=== PATIENT | female | born 1995 | race African-American/Black ===

== ENCOUNTER 2016-10-14 00:20 | Emergency (ER) | payer OTHER ==
[~2016-10-14] VITALS: Ht 172.7 cm; Wt 88.5 kg
[~2016-10-14 00:20] MED LIST: ACYC400T PO; IBUP-232 PO; OXYC1TAB63 PO; SENN1TAB PO
[2016-10-14 00:23] VITALS: BP 137/93; PULSE 75; RESP 20; TEMP 98.5; O2SAT 100
[2016-10-14] MEDS: SODIUM CHLOR 0.9% 1000 ML INJ 1,000 ML IV SCH ×2 (01:40→02:14)
[2016-10-14 01:44] VITALS: BP 148/82; PULSE 66; RESP 18; O2SAT 100
[2016-10-14] MEDS ORDERED: ONDANSETRON HCL 4 MG/2 ML VIAL IVP ONE (01:45)
[2016-10-14] MEDS ORDERED: SODIUM CHLORIDE 0.9% FLUSH 5 ML FLUSH IVF PRN (01:45)
[2016-10-14 01:47] VITALS: PULSE 66; RESP 18; O2SAT 99
[2016-10-14 01:47] LABS: GLUCOSE,URINE NEG (NEG); KETONE, URINE NEG (NEG); NITRITE,URINE NEG (NEG)
[2016-10-14 01:51] LABS: BLOOD, URINE MOD (NEG)
[2016-10-14 01:51] LABS: AUTOMATED NEUTROPHIL # 3.1 TH/MM3 (1.8-7.7); BASOPHIL % 0.8 % (0.0-2.0); EOSINOPHIL # 0.1 TH/MM3 (0-0.4); EOSINOPHIL % 1.9 % (0.0-4.0); HEMATOCRIT 36.3 % (35.0-46.0); HEMO FLAGS DIFF FINAL; LYMPH % 32.7 % (9.0-44.0); LYMPHOCYTE # 1.7 TH/MM3 (1.0-4.8); MEAN CELL VOLUME 87.7 FL (80.0-100.0); MEAN CORPUSCULAR HEMOGLOBIN 28.5 PG (27.0-34.0); MEAN CORPUSCULAR HGB CONC 32.5 % (32.0-36.0); MONO % 6.3 % (0.0-8.0); NEUT % 58.3 % (16.0-70.0); PLATELET COUNT 223 TH/MM3 (150-450); RED BLOOD COUNT 4.13 MIL/MM3 (4.00-5.30); WHITE BLOOD COUNT 5.2 TH/MM3 (4.0-11.0)
[2016-10-14 01:52] LABS: BACTERIA, URINE MOD /hpf; SQUAMOUS EPITHELIAL CELL URINE > 8 /hpf (0-5); URINE COLOR YELLOW (YELLW/STRAW)
[2016-10-14 01:53] LABS: COMMENT (UR) CULTURE INDICATED; CULTURE IF INDICATED CULTURE INDICATED
--- NOTE | 2016-10-14 01:56 | PD ---
HPI Chief Complaint: GI Complaint Time Seen by Provider: 01:35 Travel History International Travel<30 days: No Contact w/Intl Traveler<30days: No Traveled to known affect area: No History of Present Illness HPI The patient is a 21-year-old female that has been vomiting since 11 AM yesterday. She also had some diarrhea. Her boyfriend gave her some Pepto- Bismol and the vomiting has stopped at least since she got here to the emergency department. She denies any blood in the vomitus. She denies any fever. She does not have a history of bowel problems. She does have a history of ADHD, bipolar disorder and PTSD. The patient had a 2 months ago and she is not breast-feeding. She states there is a slight possibility of . PFSH Past Medical History Hx Anticoagulant Therapy: No ADD: Yes ADHD: Yes Bipolar Disorder: Yes Cardiovascular Problems: No Chemotherapy: No Cerebrovascular Accident: No Diabetes: No Diminished Hearing: No Gastrointestinal Disorders: Yes (GASTRITIS) Genitourinary: Yes Headaches: Yes Medical other: Yes (HERPES) Musculoskeletal: No Neurologic: No Psychiatric: Yes (PTSD) Reproductive: No Respiratory: No Immunizations Current: Yes Seizures: No Sickle Cell Disease: No ?: Unknown LMP: 09/2015 : 2 Para: 1 Miscarriage: 1 Past Surgical History Section: Yes (X 1) Hysterectomy: No Other Surgery: No Social History Alcohol Use: No Tobacco Use: Yes (08/17 ppd) Substance Use: Yes (MARiJUANA/NO WHILE ) Allergies-Medications (Allergen,Severity, Reaction): Coded Allergies: No Known Allergies (Verified , 10/14/16) Reported Meds & Prescriptions Reported Meds & Active Scripts Active Acyclovir 400 Mg Tab 400 Mg PO BID Review of Systems Except as stated in HPI: all other systems reviewed are Neg Physical Exam Narrative GENERAL: The patient is alert, moderately dehydrated appearing, in slight apparent distress with her nausea. Her vital signs show blood pressure 137/93 but otherwise normal. SKIN: Warm and dry. HEAD: Atraumatic. Normocephalic. EYES: Pupils equal and round. No scleral icterus. No injection or drainage. ENT: No nasal bleeding or discharge. Mucous membranes pink and moist. NECK: Trachea midline. No JVD. CARDIOVASCULAR: Regular rate and rhythm. No murmur appreciated. RESPIRATORY: No accessory muscle use. Clear to auscultation. Breath sounds equal bilaterally. GASTROINTESTINAL: Abdomen soft, non-tender, nondistended. Hepatic and splenic margins not palpable. No guarding or rebound is present. MUSCULOSKELETAL: No obvious deformities. No clubbing. No cyanosis. No edema. NEUROLOGICAL: Awake and alert. No obvious cranial nerve deficits. Motor grossly within normal limits. Normal speech. PSYCHIATRIC: Appropriate mood and affect; insight and judgment normal. Data Data Last Documented VS Vital Signs Date Time Temp Pulse Resp B/P Pulse Ox O2 Delivery O2 Flow Rate FiO2 10/14/16 01:47 66 18 99 Room Air 10/14/16 01:44 148/82 10/14/16 00:23 98.5 Orders Beta Hcg (Quant/Titer) (10/14/16 01:35) Complete Blood Count With Diff (10/14/16 01:35) Comprehensive Metabolic Panel (10/14/16 01:35) Lipase (10/14/16 01:35) Urinalysis - C+S If Indicated (10/14/16 01:35) Iv Access Insert/Monitor (10/14/16 01:35) Ecg Monitoring (10/14/16 01:35) Oximetry (10/14/16 01:35) Ondansetron Inj (Zofran Inj) (10/14/16 01:45) Sodium Chloride 0.9% Flush (Ns Flush) (10/14/16 01:45) Sodium Chlor 0.9% 1000 Ml Inj (Ns 1000 M (10/14/16 01:45) Urine Culture (10/14/16 01:30) Labs Laboratory Tests Test 10/14/16 10/14/16 01:20 01:30 White Blood Count 5.2 TH/MM3 Red Blood Count 4.13 MIL/MM3 Hemoglobin 11.8 GM/DL Hematocrit 36.3 % Mean Corpuscular Volume 87.7 FL Mean Corpuscular Hemoglobin 28.5 PG Mean Corpuscular Hemoglobin 32.5 % Concent Red Cell Distribution Width 14.0 % Platelet Count 223 TH/MM3 Mean Platelet Volume 9.0 FL Neutrophils (%) (Auto) 58.3 % Lymphocytes (%) (Auto) 32.7 % Monocytes (%) (Auto) 6.3 % Eosinophils (%) (Auto) 1.9 % Basophils (%) (Auto) 0.8 % Neutrophils # (Auto) 3.1 TH/MM3 Lymphocytes # (Auto) 1.7 TH/MM3 Monocytes # (Auto) 0.3 TH/MM3 Eosinophils # (Auto) 0.1 TH/MM3 Basophils # (Auto) 0.0 TH/MM3 CBC Comment DIFF FINAL Differential Comment Sodium Level 144 MEQ/L Potassium Level 3.8 MEQ/L Chloride Level 112 MEQ/L Carbon Dioxide Level 24.1 MEQ/L Anion Gap 8 MEQ/L Blood Urea Nitrogen 10 MG/DL Creatinine 0.85 MG/DL Estimat Glomerular Filtration 102 ML/MIN Rate Random Glucose 101 MG/DL Calcium Level 8.4 MG/DL Total Bilirubin 0.7 MG/DL Aspartate Amino Transf 19 U/L (AST/SGOT) Alanine Aminotransferase 39 U/L (ALT/SGPT) Alkaline Phosphatase 88 U/L Total Protein 7.0 GM/DL Albumin 3.6 GM/DL Lipase 117 U/L Human Chorionic Gonadotropin, LESS THAN 1 Quant MIU/ML Urine Color YELLOW Urine Turbidity CLOUDY Urine pH 6.0 Urine Specific [place] 1.027 Urine Protein TRACE mg/dL Urine Glucose (UA) NEG mg/dL Urine Ketones NEG mg/dL Urine Occult Blood MOD Urine Nitrite NEG Urine Bilirubin NEG Urine Leukocyte Esterase NEG Urine RBC 3-5 /hpf Urine WBC 6-8 /hpf Urine Squamous Epithelial > 8 /hpf Cells Urine Bacteria MOD /hpf Microscopic Urinalysis Comment CULTURE INDICATED MDM Medical Decision Making Medical Screen Exam Complete: Yes Emergency Medical Condition: Yes Medical Record Reviewed: Yes Interpretation(s) The CBC is normal with a white count of only 5200. The complete metabolic profile shows a calcium 8.4 but is otherwise normal. The lipase is normal. The beta-hCG is less than 1. The urine shows cloudy with specific gravity 1.027 , moderate occult blood, trace protein with 6-8 white cells and moderate bacteria and culture is indicated. Differential Diagnosis Gastritis, gastroenteritis, colitis, cholecystitis, urinary tract infection pyelonephritis, electrolyte disorder, dehydration, Narrative Course The patient likely has a viral gastroenteritis and urinary tract infection. The white count is low which suggest a virus. The urine is highly concentrated with a high specific gravity and does show an infection. Plan: The patient be given Septra DS as well as Phenergan. Diagnosis Primary Impression: Viral gastroenteritis Additional Impressions: Mild dehydration Urinary tract infection Additional Instructions: As we discussed, take only clear liquids like Gatorade in the first 24 hours. After that you can add foods like Jell-O, soup, fruit juices and fruits. Add fatty foods last. Fatty foods are the hardest to digest and will make you most nauseated. He will also have a urinary tract infection and Cipro is prescribed. Cipro is free at [facility] pharmacy. Phenergan is for nausea and can make you sleepy. Be careful about drinking or driving on Phenergan. Follow-up next week with your primary care physician. Med/Other Pt SpecificInfo: Prescription(s) given Scripts Ciprofloxacin (Cipro)500 Mg Res406 Mg PO BID 10 Days Ref 0 Prov:Josiah Chinchilla MD 10/14/16 Promethazine (Phenergan)25 Mg Tab25 Mg PO Q6H PRN (Nausea/Vomiting) #30 TAB Ref 0 Prov:Josiah Chinchilla MD 10/14/16 Disposition: 01 DISCHARGE HOME Condition: Stable Josiah Chinchilla MD Oct 14, 2016 01:56
[2016-10-14 01:57] LABS: CHLORIDE 112 MEQ/L (98-107); POTASSIUM 3.8 MEQ/L (3.5-5.1); SODIUM (NA) 144 MEQ/L (136-145)
[2016-10-14 02:01] LABS: ANION GAP 8 MEQ/L (5-15); BICARBONATE 24.1 MEQ/L (21.0-32.0); BLOOD UREA NITROGEN 10 MG/DL (7-18)
[2016-10-14 02:04] LABS: ALT (GPT) 39 U/L (10-53); AST (GOT) 19 U/L (15-37); GLOMERULAR FILTRATION RATE 102 ML/MIN (>89)
[2016-10-14 02:05] LABS: TOTAL BILIRUBIN ADULT 0.7 MG/DL (0.2-1.0)
[2016-10-14 02:06] LABS: ALKALINE PHOSPHATASE 88 U/L (45-117)
[2016-10-14 02:09] LABS: BETA HCG QUANT LESS THAN 1 MIU/ML (0-5)
[2016-10-14 02:16] VITALS: BP 128/73; PULSE 73; RESP 20; TEMP 99.1; O2SAT 100
[2016-10-14] MEDS ORDERED: CIPR-9 PO (02:27)
[2016-10-14] MEDS ORDERED: PROM25TA5 PO (02:27)
[2016-10-14] MEDS ORDERED: CIPROFLOXACIN 500 MG TAB PO ONE (02:30)
[2016-10-14 02:32] VITALS: BP 128/73
== END 2016-10-14 03:05 | disposition home or self-care (01) ==
LOC: PHED 00:20
DX: A08.4 Viral intestinal infection, unspecified (principal); E86.0 Dehydration; N39.0 Urinary tract infection, site not specified; Z72.0 Tobacco use; Z86.59 Personal history of other mental and behavioral disorders; Z87.19 Personal history of other diseases of the digestive system; Z87.448 Personal history of other diseases of urinary system
CPT/HCPCS: 80053; 81001; 83690; 84702; 85025; 87086; 96361; 96374; 99284; J2405; J7030

== ENCOUNTER 2017-02-08 23:06 | Emergency (ER) | payer OTHER ==
[~2017-02-08] VITALS: Ht 172.7 cm; Wt 90.0 kg
[~2017-02-08 23:06] MED LIST changes: +CIPR-9 PO; -IBUP-232 PO; -OXYC1TAB63 PO; +PROM25TA5 PO; -SENN1TAB PO
[2017-02-08 23:08] VITALS: BP 134/69; PULSE 89; RESP 15; TEMP 99; O2SAT 100
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
[2017-02-09 01:54] LABS: CHLAMYDIA PCR NOT DETECTED (NOT DETECT); NEISSERIA PCR NOT DETECTED (NOT DETECT)
== END 2017-02-09 00:04 | disposition home or self-care (01) ==
LOC: NEPD 23:06
DX: R10.2 Pelvic and perineal pain (principal); F17.210 Nicotine dependence, cigarettes, uncomplicated
CPT/HCPCS: 84703; 87491; 87591; 99283